=== PATIENT | female | born 1955 | race Caucasian/White ===

== ENCOUNTER 2024-08-17 20:29 | Emergency (ER) | payer MEDICARE, SELFPAY ==
[2024-08-17 20:36] VITALS: PULSE 102; RESP 16; O2SAT 98; BMI 57.2
[2024-08-17 20:43] VITALS: BP 144/69; PULSE 90; RESP 18; TEMP 36.8; O2SAT 96
--- NOTE | 2024-08-17 21:31 | PC.NURSE ---
pt biba for sob patient states its been gradually getting worse so she decided she needed to come in today. patient on 5L NC o2 sats 97% patient has multiple wounds on lower buttocks no drainage noted. patient states she takes care of her wounds and its been a chronic issue.
--- NOTE | 2024-08-17 22:01 | PD.EDSOB ---
ED SOB =RME/HPI General Chief Complaint: Shortness of Breath/Dyspnea Stated Complaint: SOB Time Seen by Provider: 08/17/24 22:14 Arrival date/time: 08/17/24 20:29 Limitations: no limitations RME / HPI RME / HPI Narrative: Dr. Miranda's Main ED Evaluation: 68yo female RICK from home presents to the ED for a chief complaint of chronic shortness of breath. Patient endorses having a 1-2 month history of shortness of breath, reporting she is on 3L/NC of oxygen at home at her baseline. She states she felt she was more short of breath yesterday and was afraid to go to sleep due to feeling like she might in my sleep , so she came in for evaluation. She denies any fever, chills, bloody stools or any other associated symptoms. Denies any tobacco use. Related Data Home Medications ?Medication ?Instructions ?Recorded ?Confirmed gabapentin 100 mg capsule 100 mg PO QID #0 caps 12/15/17 01/08/24 morphine 100 mg capsule,extended 100 mg PO TID 12/15/17 01/08/24 release pellets oxycodone 15 mg tablet 15 mg PO TID 12/15/17 01/08/24 cyclobenzaprine 10 mg tablet 10 mg PO TID 11/26/18 01/08/24 carvedilol 6.25 mg tablet 6.25 mg PO BID 01/08/24 01/08/24 cyclobenzaprine 10 mg tablet 10 mg PO TID 01/08/24 01/08/24 Previous Rx's ?Medication ?Instructions ?Recorded sulfamethoxazole 800 1 tab PO BID #20 tabs 09/11/21 mg-trimethoprim 160 mg tablet (Bactrim DS) apixaban 5 mg (74 tabs) tablets in 5 mg PO BID #74 tabs 01/08/24 a dose pack (Eliquis DVT-PE Treat 30D Start) carvedilol 12.5 mg tablet 12.5 mg PO BID #30 tabs 01/08/24 levalbuterol tartrate 45 1 inh inhalation BID #15 grams 08/17/24 mcg/actuation aerosol inhaler (Xopenex HFA) Allergies Allergy/AdvReac Type Severity Reaction Status Date / Time amitriptyline Allergy Severe KNOCKS ME Verified 09/11/21 13:54 OUT caffeine Allergy Severe HIGH BP Verified 09/11/21 13:54 ergotamine Allergy Severe HIGH BP Verified 09/11/21 13:54 fentanyl Allergy Severe BODY Verified 09/11/21 13:54 BLISTERS AND COBOS sumatriptan Allergy Severe HIGH BP Verified 09/11/21 13:54 methadone Allergy Mild PT. FEARS Verified 09/11/21 13:54 ADDICTION Review of Systems Review of Systems Systems Reviewed: All systems reviewed, normal except as documented Past Medical History Past Medical History CARDIAC: Positive Myocardial Infarction (x3), Atrial Fibrillation and Hypertension; Negative Cardiac Disorders or Congestive Heart Failure RESPIRATORY: Negative Chronic Obstructive Pulmonary Disease (COPD) or Asthma GASTROINTESTINAL: Positive Hiatal Hernia GENITOURINARY: Negative Renal Disease ENDOCRINE: Negative Diabetes Mellitus Type 1 or Diabetes Mellitus Type 2 HEMATOLOGIC: Negative Sickle Cell Disease Surgical History SURGICAL: Positive Abdominal Surgery and Section Social History SMOKING STATUS: Never smoker ED Exam General Limitations: Present no limitations General appearance: Present alert, in no apparent distress and obese Head Head exam: Present atraumatic Eye Eye exam: Present normal appearance, PERRL and EOMI ENT ENT exam: Present normal exam, normal oropharynx and mucous membranes moist Neck Neck exam: Present normal inspection, full ROM and trachea midline Chest Chest inspection: Present normal inspection and symmetric chest wall rise Respiratory Respiratory exam: Present other (decreased breath sounds bilaterally) Cardiovascular Cardiovascular exam: Present regular rate, normal rhythm and normal heart sounds Abdominal Exam Abdominal exam: Present soft; Absent tenderness or rebound Extremities Exam Extremities exam: Present normal inspection and full ROM; Absent pedal edema Back Exam Back exam: Present normal inspection and full ROM Neurological Exam Neurological exam: Present alert, oriented X3 and CN II-XII intact Psychiatric Psychiatric exam: Present normal affect and normal mood Skin Skin exam: Present warm, dry, intact, normal color and other (multiple chronic open lesions to the right lateral and posterior thigh; chronic vascular changes on anterior legs; chronic well-appearing wound to the right anterior gomez that are not erythematous or draining; old excoriations and abrasions to the left lateral leg; no petechiae); Absent diaphoresis, pallor or mottled Course Course Course Narrative: CXR is ordered for determining the etiology of shortness of breath. Quality Measures none Orders Category Date Time Status CXRP [XR chest 1V portable] Stat Exams 08/17/24 22:45 Completed BNP [B-Type Natriuretic Peptide] Stat Lab 08/17/24 22:15 Completed CBC Stat Lab 08/17/24 22:15 Completed CMP [Comprehensive Metabolic Panel] Stat Lab 08/17/24 22:15 Completed PT [Prothrombin Time with INR] Stat Lab 08/17/24 22:15 Completed PTT [Partial Thromboplastin Time] Stat Lab 08/17/24 22:15 Completed Troponin I Stat Lab 08/17/24 22:15 Completed Albuterol/Ipratr Rt Juana [Duoneb Rt Juana] Med 08/17/24 22:44 Discontinued 3 ml INH X1 ONE Vital Signs Vital signs: Vital Signs Temperature 98.2 F 08/17/24 20:43 Pulse Rate 90 08/17/24 20:43 Respiratory Rate 18 08/17/24 20:43 Blood Pressure 144/69 H 08/17/24 20:43 Pulse Oximetry (%) 96 08/17/24 20:43 Oxygen Delivery Method Nasal Cannula 08/17/24 20:43 Oxygen Flow Rate 5 08/17/24 20:43 Shortness of Breath / Dyspnea MDM Narrative MDM Narrative:: Patient declined blood transfusion due to anglican reasons. Patient states she has never been on blood thinners. She is requesting a duoneb treatment here and to be discharged home with an inhaler. Patient is no acute distress. Her oxygen is at approximately 100% on 3 L return precautions are given and understood. Patient data External records reviewed:: [facility] previous records (Per chart review, patient was seen here on 01/08/24 for anemia.) Clinical information provided by:: patient Social determinants that could affect healthcare access:: none Patient has the following chronic illnesses:: aFib, HTN How is presenting disease/condition affected by chronic disease/condition?: uneffected by Evaluation data The following diagnostics were reviewed and interpreted by me:: lab results, radiology exam(s) and EKG tracing(s) Lab and/or radiology exams considered but not ordered:: none Interpretation Summary: HnH is low at 6.3/24.9, Platelets are normal, CMP is normal, Troponin is normal, BNP is 234, according to my interpretation. EKG done at 2049, aFib, rate of 96, QTc: 278, no STEMI, according to my interpretation. Medications / Prescriptions Medications or Prescriptions considered but not ordered:: none Medication administrations:: Medication Administration History Discontinued Medications Albuterol/Ipratropium (Albuterol/Ipratropium (Duoneb) Rt Juana 3 Ml Nebu) 3 ml INH X1 ONE Stop: 08/17/24 22:45 Last Admin: 08/17/24 23:46 Dose: 3 ml Documented By: GERALDO see above Consultations Consultation(s) initiated? (list below): No Diagnosis Shortness of Breath Differential Diagnosis: congestive heart failure, community acquired pneumonia, pulmonary embolism and other (worsening chronic shortness of breath, anemia) Most likely diagnosis given after review of the tests above:: see clinical impression below Admission Indicated Admission indicated?: not indicated Admission Request Was there a request for admission?: No Disposition Plan Disposition Plan: Discharge Discharge Attestation Discharge Attestation: The patient and all family members were given an opportunity to ask questions and understood the discharge instructions. Discharge instructions specifically effects, indications for sooner follow up or return to the emergency department, and the expected course of current diagnosis. Patient condition: Stable Discharge Plan Plan Patient Disposition: HOME (Self Care) Prescriptions/Referrals Prescriptions/Med Rec: New levalbuterol tartrate [Xopenex HFA] 45 mcg/actuation HFA aerosol inhaler 1 inh inhalation BID Qty: 15 0RF No Action cyclobenzaprine 10 mg tablet 10 mg PO TID morphine 100 mg capsule,extend.release pellets 100 mg PO TID oxycodone 15 mg tablet 15 mg PO TID gabapentin 100 mg capsule 100 mg PO QID Qty: 0 sulfamethoxazole-trimethoprim [Bactrim DS] 800-160 mg tablet 1 tab PO BID Qty: 20 0RF cyclobenzaprine [Flexeril] 10 mg Tablet 10 mg PO TID carvedilol 6.25 mg Tablet 6.25 mg PO BID Rx Instructions: must administer with a meal/food carvedilol 12.5 mg tablet 12.5 mg PO BID Qty: 30 0RF Rx Instructions: must administer with a meal/food Eliquis DVT-PE Treat 30D Start 5 mg (74 tabs) tablets,dose pack 5 mg PO BID Qty: 74 0RF Problem List Clinical Impression: Symptomatic anemia, Chronic shortness of breath Patient/Caregiver Discharge Instructions Education Materials: ED Shortness of Breath (Dyspnea) Additional Instructions: Today you for having your acute on chronic shortness of breath. This may be because you are hemoglobin is slightly low however you states that it is always low. At this time you are not about [employer] and you have refused blood at this time which is understandable. I have given your inhaler as requested. Please return to the emergency department for any worsening symptoms, you feel like you need more than your normal level of oxygen at home, or you have any other concerns. Print Language: Irish Stand Alone Forms: Breonna Award Info., Patient Portal Info Letter
[2024-08-17 22:31] LABS: Basophils % (Auto) 1 % (0-2.5); Eosinophils # (Auto) 0.1 Thou/mm3 (0.0-0.5); Eosinophils % (Auto) 1 % (0-10); Hematocrit 24.9 % (36.0-46.0); Immature Granulocytes % (Auto) 0 % (0-0); Immature Granulocytes Auto 0.01 Thou/mm3 (0.00-0.00); Lymphocytes # (Auto) 0.8 Thou/mm3 (1.0-4.8); Lymphocytes % (Auto) 15 % (10-50); Mean Corpuscular HGB Conc 25.3 g/dl (31.0-37.0); Mean Corpuscular Hemoglobin 17.5 pg (25.0-35.0); Mean Corpuscular Volume 69 fL (80-100); Monocytes # (Auto) 0.6 Thou/mm3 (0.0-0.8); Monocytes % (Auto) 11 % (0-12); Neutrophils # (Auto) 3.7 Thou/mm3 (1.8-7.7); Neutrophils % (Auto) 72 % (37-80); Nucleated Red Blood Cell % 0 /100 WBC (0); Platelet Count 160 Thou/mm3 (140-440); RDW Standard Deviation 53.8 fL (36.4-46.3); Red Blood Count 3.59 Miln/mm3 (4.00-5.20); White Blood Count 5.2 Thou/mm3 (3.6-11.0)
[2024-08-17 22:40] LABS: Hemoglobin 6.3 g/dL (12.0-16.0)
[2024-08-17 22:45] LABS: INR 1.1 (0.9-1.3); Partial Thromboplastin Time 23.6 Seconds (22.0-36.0)
--- NOTE | 2024-08-17 22:45 | XR_ITS ---
Examination: AP chest single view FINDINGS: AP portable upright chest single view Exam date and time: August 17, 2024 1051 hours INDICATIONS: Chronic shortness of breath worse today FINDINGS: Moderate CHF Moderate enlargement cardiac contour Prominent vascular congestion. Perihilar edema Moderate osteopenia IMPRESSION: Moderate CHF
[2024-08-17 22:58] LABS: Alanine Aminotransferase 16 U/L (10-49); Albumin, Serum 3.6 gm/dL (3.4-4.8); Albumin/Globulin Ratio 1.1 (1.2-2.2); Alkaline Phosphatase 96 U/L (46-116); Anion Gap 4 (7-16); Aspartate Amino Transferase 28 U/L (0-34); BUN/Creatinine Ratio 38 Ratio (12-20); Bilirubin,Total 0.8 mg/dL (0.3-1.2); Blood Urea Nitrogen 23 mg/dL (9-23); Calcium 9.1 mg/dL (8.3-10.6); Calcium (Corrected) 9.4 mg/dL (8.5-10.1); Carbon Dioxide 39.5 mMol/L (20.0-31.0); Chloride 100 mMol/L (98-107); Creatinine (Component) 0.6 mg/dL (0.6-1.3); Estimated Creatinine Clearance 150.2 mL/min (>60); Globulin 3.4 gm/dL (2.3-3.5); Glucose 103 mg/dL (74-106); Osmolality,Calculated 288 (275-295); Potassium 4.4 mMol/L (3.4-5.1); Sodium 143 mMol/L (136-145); Troponin I < 0.020 ng/mL (0.0-0.045); eGFR > 60 See Note
[2024-08-17 23:16] LABS: B-Type Natriuretic Peptide 234 pg/mL (0-100)
[2024-08-17 23:45] VITALS: PULSE 101; PULSE 79; RESP 14; RESP 20; O2SAT 100; O2SAT 95
[2024-08-17] MEDS: ALBUTEROL/IPRATROPIUM (Duoneb) RT SOL 3 ML NEBU INH (23:46)
[2024-08-18 02:28] LABS: Path Review Blood Smear Sent to Pathologist
[2024-08-18 03:37] VITALS: BP 119/68; PULSE 98; RESP 14; TEMP 36.6; O2SAT 98
== END 2024-08-18 03:38 | disposition home or self-care (01) ==
PROVIDERS: Emergency Provider Emergency Medicine
DX: D64.9 Anemia, unspecified (principal); R06.02 Shortness of breath; I11.0 Hypertensive heart disease with heart failure; I50.9 Heart failure, unspecified; I48.91 Unspecified atrial fibrillation; I25.2 Old myocardial infarction
CPT/HCPCS: 36415; 71045; 80053; 83880; 84484; 85025; 85610; 85730; 94640; 99283; A9270

== ENCOUNTER → 2024-12-28 | Outpatient (CLI) | payer MEDICARE, SELFPAY ==
[2024-12-28 12:40] LABS: Amphetamine/Methamp Scrn,U Negative (Negative); Barbiturate Screen,Urine Negative (Negative); Benzodiazepines Screen,Urine Negative (Negative); Benzoylecgonine Screen, Ur Negative (Negative); Fentanyl Screen,Urine Negative (Negative); Opiate Screen,Urine Positive (Negative); THC Screen,Urine Negative (Negative)
== END | disposition home or self-care (01) ==
PROVIDERS: Referring Provider Neuromusculoskeletal Medicine & OMM; Visit Provider Neuromusculoskeletal Medicine & OMM
DX: Z79.899 Other long term (current) drug therapy (principal)
CPT/HCPCS: 80307